=== PATIENT | female | born 1995 | race Caucasian/White ===

== ENCOUNTER 2020-05-29 11:38 | Emergency (ER) | payer OTHER ==
[~2020-05-29 11:38] MED LIST: NORCO 5-325 TA1 EACH PO
[2020-05-29 14:01] LABS: HEMOGLOBIN 13.5 gm/dl (12.3-15.3); RED BLOOD COUNT 4.31 M/UL (4.00-5.10)
[2020-05-29] MEDS ORDERED: IBUPROFEN600 MG PO (14:03)
[2020-05-29] MEDS ORDERED: ERYTHROMYCIN OP1 GM OS (14:03)
[2020-05-29 14:21] LABS: BUN/CREATININE RATIO 21 (0-10)
== END 2020-05-29 16:29 | disposition home or self-care (01) ==
LOC: ER1 11:38
PROVIDERS: Physician Assistant Medical
DX: R07.9 Chest pain, unspecified (principal); R06.02 Shortness of breath; J45.909 Unspecified asthma, uncomplicated
CPT/HCPCS: 71045; 80053; 81001; 82550; 82553; 83874; 84439; 84443; 84484; 84703; 85025; 99285

== ENCOUNTER → 2020-09-05 | Outpatient (CLI) | payer OTHER ==
[~2020-09-05] MED LIST changes: +ERYTHROMYCIN OP1 GM OS; +IBUPROFEN600 MG PO
== END ==
LOC: ECHO 08-29 09:00 → HEART 5 08-29 11:00 → ECHO 13:00 → NM 15:00 → ECHO 09-07 13:00 → NM 09-07 15:00
DX: R07.9 Chest pain, unspecified (principal); R53.83 Other fatigue; R06.02 Shortness of breath; I34.0 Nonrheumatic mitral (valve) insufficiency
CPT/HCPCS: ECHO; 93017; 93306

== ENCOUNTER → 2021-02-15 | Outpatient (CLI) | payer OTHER ==
[2021-02-15 13:50] LABS: HEMOGLOBIN 13.7 gm/dl (12.3-15.3); RED BLOOD COUNT 4.32 M/UL (4.00-5.10); WHITE BLOOD COUNT 4.9 K/UL (4.5-11.0)
[2021-02-15 14:15] LABS: BUN/CREATININE RATIO 21 (0-10)
[2021-02-16 08:14] LABS: VITAMIN D, 25-HYDROXY 79.6 ng/mL (30.0-100.0)
[2021-02-16 09:14] LABS: HBSAG SCREEN Negative (Negative); HEP A AB, IGM Negative (Negative); HEP B CORE AB, IGM Negative (Negative); HEP C VIRUS AB 0.1 (0.0-0.9)
[2021-02-16 10:14] LABS: COMPLEMENT C3, SERUM 123 mg/dL (82-167); COMPLEMENT C4, SERUM 24 mg/dL (12-38); RHEUMATOID ARTHRITIS FACTOR <10.0 IU/mL (<14.0)
== END ==
LOC: LAB 12:52
PROVIDERS: Nurse Practitioner Family
DX: Z11.59 Encounter for screening for other viral diseases (principal); M25.50 Pain in unspecified joint; R76.8 Other specified abnormal immunological findings in serum; D89.9 Disorder involving the immune mechanism, unspecified; M79.10 Myalgia, unspecified site; R53.83 Other fatigue
CPT/HCPCS: 36415; 80053; 80074; 81001; 82550; 82570; 82728; 83520; 84156; 84439; 84443; 85025; 85652; 86140; 86160; 86162; 86200; 86431

== ENCOUNTER 2021-08-02 20:54 | Emergency (ER) | payer OTHER ==
[2021-08-02 22:52] LABS: HEMOGLOBIN 13.4 gm/dl (12.3-15.3); RED BLOOD COUNT 4.35 M/UL (4.00-5.10); WHITE BLOOD COUNT 6.1 K/UL (4.5-11.0)
[2021-08-02 23:41] LABS: BUN/CREATININE RATIO 27 (0-10)
[2021-08-03] MEDS ORDERED: AFRIN15 M1 (01:19)
[2021-08-03] MEDS ORDERED: AUGMENTIN 500-500 MG PO (01:19)
== END 2021-08-03 01:40 | disposition home or self-care (01) ==
LOC: ER1 20:54
PROVIDERS: Family Medicine
DX: J32.9 Chronic sinusitis, unspecified (principal); R53.1 Weakness; R53.83 Other fatigue
CPT/HCPCS: 70450; 71046; 80053; 80307; 81001; 82550; 82553; 83880; 84439; 84443; 84484; 85025; 85652; 86140; 93005; 99284